=== PATIENT | female | born 1965 | race Caucasian/White ===

== ENCOUNTER → 2020-01-29 | Outpatient (CLI) | payer SELFPAY ==
[2020-01-29 15:04] VITALS: BMI 33.6
[2020-02-04 20:08] LABS: HPV APTIMA, High Risk Negative (Negative)
== END | disposition home or self-care (01) ==
LOC: LABSPEC 16:17
PROVIDERS: Referring Provider Obstetrics & Gynecology; Visit Provider Obstetrics & Gynecology
DX: Z12.4 Encounter for screening for malignant neoplasm of cervix (principal); R30.0 Dysuria
CPT/HCPCS: 87086; 87624; 88175; G0145

== ENCOUNTER → 2020-02-11 12:36 | Outpatient (CLI) | payer SELFPAY ==
[2020-01-29 15:04] VITALS: BMI 33.6
--- NOTE | 2020-02-11 12:40 | US_ITS ---
STUDY: ULTRASOUND OF THE FEMALE PELVIS - COMPLETE REASON FOR EXAM: Female, 54 years old. HX OF FIBROIDS -- PERIMENOPAUSAL -- HX OF CERVIX BIOPSY 1 YEAR AGO -- PAIN WITH INTERCOURSE LMP: Patient is perimenopausal. TECHNIQUE: Transvaginal TECHNICAL QUALITY: Adequate. COMPARISON: None. FINDINGS: The uterus is anteverted and is in a midline position. The uterus measures 7.8 cm x 8.3 cm x 5.9 cm. Normal uterine cervix. The endometrium is thickened and measures 10 mm in thickness, and is hyperechoic. There is no demonstrated endometrial mass. 3 fibroids are seen. The largest measures 4.5 cm x 4.7 cm x 3.7 cm. I.U.D. - The patient does not have an I.U.D. The right ovary is visualized. The right ovary measures 2.1 cm x 2.3 cm x 1.1 cm. There is no right ovarian cyst or ovarian mass. There is no visualized right adnexal mass or complex lesion. There is normal arterial and normal venous vascularity. The left ovary is visualized. The left ovary measures 2.4 cm x 2.7 cm x 1.3 cm. There is no left ovarian cyst or ovarian mass. There is no visualized left adnexal mass or complex lesion. There is normal arterial and normal venous vascularity. There is no fluid in the cul-de-sac. The pre void volume of the bladder was 170 ml. Polycystic ovary disease: No. US/Transvaginal Non- IMPRESSION: Fibroid uterus. Thickened endometrium. Electronically Signed: Henrry Horowitz, at 15:25 EST , Service support ,
== END ==
PROVIDERS: Referring Provider Obstetrics & Gynecology; Visit Provider Obstetrics & Gynecology
DX: D25.9 Leiomyoma of uterus, unspecified (principal)
CPT/HCPCS: 76830

== ENCOUNTER 2023-12-02 13:49 | Emergency (ER) | payer SELFPAY ==
[2023-12-02 13:49] VITALS: BP 131/91; PULSE 73; RESP 16; TEMP 36.6; O2SAT 98
[2023-12-02 14:19] VITALS: BMI 33.5
[2023-12-02 14:38] LABS: Color, Urine Yellow (Yellow); Glucose, Dipstick Normal (Normal); Leukocyte Esterase-Dipstick 25 /ul (Negative); Nitrite-Dipstick Negative (Negative); Occult Blood-Urine 250 /ul (Negative); Protein-Dipstick 30 mg/dl (Negative); Urine Bilirubin Dipstick Negative (Negative); Urine Clarity Sl. Cloudy (Clear); Urine Urobilinogen 1 mg/dl (Normal)
[2023-12-02 14:41] LABS: Ketone-Dipstick 150 mg/dl (Negative)
--- NOTE | 2023-12-02 14:43 | EDS_ITS ---
HPI History of Present Illness Chief Complaint: Flank Pain Informant: patient Onset/Context/Timing Onset: Hours (3-4) Context: Sudden Onset Timing: Continuous and Waxes and wanes Quality: Burning Location: Left flank Worsened by: Nothing Relieved by: Nothing Narrative Narrative: Patient presents with left flank pain that began today. Patient states it began rather suddenly. Patient states it began approximately 3 to 4 hours prior to arrival. Patient states that it has been constant but waxing and waning. Patient describes her pain as burning. Patient states nothing makes it better and nothing makes it worse. Patient states she is unable to find a position of comfort. Patient admits to some dysuria but has not noticed any hematuria. Patient admits to subjective fever at home. Patient states that the pain is causing her to be somewhat short of breath. [facility] Medical History Kidney disease Abdominal tumor Home Medications ?Medication ?Instructions ?Recorded ?Last Taken ?Type hydrocodone-acetaminophen 5-325mg 1 tab PO Q6H PRN PRN Pain 3 days 12/02/23 Unknown Rx 5mg-325mg #10 TABLETS Allergy/AdvReac Type Severity Reaction Status Date / Time red dye Allergy Mild other Verified 12/02/23 13:51 Family History (Updated 01/29/20 @ 15:10 by Mandi Hess) Mother COPD (chronic obstructive pulmonary disease) Social History Smoking Status: Former smoker alcohol intake: current details: social substance use type: marijuana caffeine: Yes what type of physical activity do you participate in: none duration: 30-45 minutes/day seatbelt use: always do you feel safe at home: Yes ROS ROS ED Constitutional Constitutional ED: Reports fever(s) and subjective; Denies chills Eyes Eyes: Denies blurry vision or change in vision ENT ENT ED: Denies rhinorrhea or sore throat Cardiovascular Cardiovascular: Denies chest pain or palpitations Respiratory/Chest Respiratory/Chest: Reports dyspnea; Denies cough Gastrointestinal Gastrointestinal: Reports abdominal pain, nausea and vomiting Genitourinary Genitourinary ED: Reports dysuria; Denies hematuria Musculoskeletal Musculoskeletal: Reports back pain; Denies neck pain Integumentary Denies abscess or rash Neurologic Neurologic: Reports weakness; Denies headache(s) Allergic/Immunologic Allergic/Immunologic ED: Denies mouth swelling or urticaria EXAM Physical Exam Const Vital Signs: 12/02/23 13:49 12/02/23 14:49 12/02/23 15:49 Temperature 98 F 97.9 F 98.4 F Temperature Source Temporal Oral Oral Pulse Rate 73 92 75 Respiratory Rate 16 18 16 Blood Pressure 131/91 H 154/96 H 127/65 H Blood Pressure Mean 104 115 85 Pulse Ox 98 92 99 Oxygen Delivery Method Room Air Room Air Room Air Positive well nourished and well developed General Appearance ED: well developed HEENT Reports moist mucous membranes Neck supple and no JVD Resp normal respiratory effort and clear to auscultation bilaterally Cardio regular rate and regular rhythm GI non-distended Palpation: soft and tender LLQ; Negative for guarding or rebound tenderness present Back/Spine General Back: CVA tenderness left Extremity normal to inspection Neuro oriented x3, CN's II-XII intact bilaterally and no sensory deficits noted Sensorium / Orientation: alert Motor Exam: strength 5/5 throughout MDM MDM MDM Narrative Medical decision making narrative: Differential diagnosis includes ureteral calculus, pyelonephritis, and urinary tract infection. CT scan of the abdomen pelvis will be obtained to assess for ureteral calculus and hydronephrosis. CBC will be obtained to assess for leukocytosis and anemia. Basic metabolic profile will be obtained to assess for electrolyte abnormality and renal function. Urinalysis will be obtained to assess for urinary tract infection and hematuria. Lab Data Attestation: I reviewed the patient's lab results. Lab results narrative: Urinalysis was reviewed. Leukocyte esterase was 25. Occult blood was 250. There were 150 ketones. There were 25-50 red blood cells. There is 0-5 white blood cells. There is 1+ bacteria. CBC was reviewed. There is a leukocytosis of 15.1. The remainder is within normal limits. Labs: Laboratory Results - last 24 hr 12/02/23 12/02/23 14:00 14:29 WBC 15.1 H RBC 4.60 Hgb 14.0 Hct 41.9 MCV 91.1 MCH 30.4 MCHC 33.4 RDW Std Deviation 40.7 RDW Coeff of Tori 12.2 Plt Count 400 MPV 9.8 Immature Gran % (Auto) 0.500 Neut % (Auto) 71.2 H Lymph % (Auto) 21.0 [place] % (Auto) 6.1 Eos % (Auto) 0.7 Baso % (Auto) 0.5 Absolute Neuts (auto) 10.7 H Absolute Lymphs (auto) 3.17 Nucleated RBC % 0 Sodium 135 L Potassium 3.5 Chloride 104 Carbon Dioxide 21.0 Anion Gap 10 BUN 16 Creatinine 1.00 Estim Creat Clear Calc 73.38 Est GFR (MDRD) Af Amer 73 Est GFR (MDRD) Non-Af 61 BUN/Creatinine Ratio 16.0 Glucose 154 H Calcium 10.0 Urine Color Yellow Urine Clarity Sl. Cloudy Urine pH 5.0 Ur Specific [place] 1.030 Urine Protein 30 H Urine Glucose (UA) Normal Urine Ketones 150 A* Urine Occult Blood 250 H Urine Nitrite Negative Urine Bilirubin Negative Urine Urobilinogen 1 H Ur Leukocyte Esterase 25 H Urine RBC 25-50 SEEN Urine WBC 0-5 SEEN Ur Squamous Epith Cells 0-5 SEEN Calcium Oxalate Crystal 1+ Urine Bacteria 1+ Urine Mucus 2+ Radiography Diagnostic Testing: Clinical Impression(s) from Imaging Studies Abdomen/Pelvis CT 12/02/23 14:43 IMPRESSION: 3.5 mm calculus at the left ureterovesical junction as it enters the urinary bladder causing a mild degree of left hydronephrosis and left hydroureter. Left perinephric stranding. Fenestration of the liver. Hepatic and splenic granulomas. Electronically Signed: Henrry Horowitz MD at 16:02 EDT , CT scan of the abdomen pelvis was obtained. There is a 3.5 mm calculus in the left ureterovesicular junction causing mild left hydronephrosis and hydroureter. There is left perinephric stranding. This was interpreted by the radiologist and was also independently reviewed by myself. Treatment and Re-Evaluation :: Patient was given IV fluids, morphine, and Zofran. Patient was feeling better on reevaluation. Patient states she feels the pain starting to come back. Patient was given a dose of Toradol. Patient was advised of her findings. Patient was instructed drink plenty of fluids. Patient was given a prescription for a short course of Gaastra. Patient was instructed to follow-up with her primary care physician in 5 to 7 days. Patient states she has also seen Dr. Torres in the past. Patient was instructed to follow-up with her in 5 to 7 days. Patient understood and was agreeable with the plan. All questions were answered. Discharge Plan Triage Chief Complaint: Flank Pain ED Provider: Andi Savage Dx/Rx/DC Orders Clinical Impression: Calculus of distal left ureter, Hematuria Instructions: ED Kidney Stone with Pain Prescriptions: New hydrocodone-acetaminophen 5-325 mg tablet 1 tab PO Q6H PRN PRN (Reason: Pain) 3 Days Qty: 10 0RF Primary Care Provider: Care Physician,No Primary Referrals: Consuelo Torres MD [Med Staff - Active Staff] - 3-5 Days Care Physician,No Primary [Primary Care Provider] - Print Language: [place] Disposition Disposition: Home, Self Care
--- NOTE | 2023-12-02 14:43 | CT_ITS ---
STUDY: CT ABDOMEN AND PELVIS WITHOUT CONTRAST REASON FOR EXAM: Female, 58 years old. Left flank pain RADIATION DOSAGE (If Supplied By Facility): CTDIvol = ( 19.63 ) mGy, DLP = ( 995.68 ) mGycm TECHNIQUE: Transaxial images were obtained from the dome of the diaphragm to the symphysis pubis without oral contrast, and without intravenous contrast. Sagittal and coronal images were reconstructed. Individualized dose optimization techniques were used for this CT. COMPARISON: None. FINDINGS: The visualized lung bases are unremarkable. The visualized portions of the heart are within normal limits. There is decreased attenuation of the liver consistent with steatosis. Scattered calcified hepatic granulomas. Normal gallbladder and extrahepatic biliary system. There are multiple benign calcified granulomata of the spleen. Normal pancreas. Normal bilateral adrenal glands. Normal right kidney. Mild degree of left hydronephrosis and left hydroureter due to a 3.5 mm calculus at the left ureterovesical junction. This is about to enter the urinary bladder. There is evidence of left perinephric and periureteric stranding. Normal visualized stomach. Normal small intestine. Normal colon. The appendix is visualized and appears normal. There is scattered atherosclerotic calcification of the abdominal aorta, without a demonstrated aneurysm. Normal inferior vena cava. Normal retroperitoneum. Normal urinary bladder. Calcified phleboliths are seen in the pelvis. Normal abdominal wall. Normal osseous structures. CT/Abdomen/Pelvis without Cont IMPRESSION: 3.5 mm calculus at the left ureterovesical junction as it enters the urinary bladder causing a mild degree of left hydronephrosis and left hydroureter. Left perinephric stranding. Fenestration of the liver. Hepatic and splenic granulomas. Electronically Signed: Henrry Horowitz MD at 16:02 EDT ,
[2023-12-02 14:45] LABS: Calcium Oxalate Crystals Ur 1+ /hpf (<or=2+); Mucous, Urine 2+ /hpf (<or=2+); Red Blood Cells-Urine 25-50 SEEN /hpf (0-5)
[2023-12-02 14:46] LABS: Bacteria 1+ /hpf (None Seen); Squamous Epithelial Cells - UA 0-5 SEEN /hpf (5-10); White Blood Cells 0-5 SEEN /hpf (0-5)
[2023-12-02 14:49] VITALS: BP 154/96; PULSE 92; RESP 18; TEMP 36.6; O2SAT 92
[2023-12-02] MEDS: Ondansetron 4 MG/2 ML Vial IV (14:50)
[2023-12-02] MEDS: Morphine 4 MG/ML Syringe IV (14:50)
[2023-12-02] MEDS: 0.9% Normal Saline (1000mL) 1,000 ML 1000 ML IV (14:50)
[2023-12-02 14:51] LABS: Absolute Lymphocyte Count 3.17 X10^3/uL (0.83-4.51); Absolute Neutrophil Count 10.7 X10^3/uL (2.0-7.7); Basophil# 0.08 X10^3/uL; Basophil% 0.5 % (0-1); Eosinophils% 0.7 % (0-5); Hematocrit 41.9 % (37-47); Lymphocyte # 3.17 X10^3/ul (0.83-4.51); Mean Corp Hgb Conc 33.4 g/dL (32-36); Mean Corpuscular Hgb 30.4 pg (27.0-32.0); Mean Corpuscular Volume 91.1 fL (81-99); Mean Platelet Vol. 9.8 fl (6.2-12.0); Monocyte# 0.92 X10^3/uL; Monocyte% 6.1 % (0-10); NRBC Flagged by Analyzer 0 % (0-5); Neutrophil # 10.73 X10^3/uL (2.7-7.7); Neutrophil % 71.2 % (47-70); Platelet Count 400 K/mm3 (150-450); RBC Distribution Width CV 12.2 % (11.6-14.6); RBC Distribution Width SD 40.7 fl (35.1-43.9); White Blood Count 15.1 K/mm3 (4.4-11.0)
[2023-12-02 15:03] LABS: Anion Gap 10 (5-15); BUN 16 mg/dL (7-18); Chloride 104 mmol/L (98-107); EST Glomerular Filtration Rate 61 mL/min (>60); Est Glom Filt Rate - Afr Amer 73 mL/min (>60); Estimated Creatinine Clearance 73.38 ml/min; Glucose 154 mg/dL (74-106); Potassium 3.5 mmol/L (3.5-5.1); Sodium Level 135 mmol/L (136-145)
[2023-12-02 15:49] VITALS: BP 127/65; PULSE 75; RESP 16; TEMP 36.9; O2SAT 99
[2023-12-02] MEDS: Ketorolac 30 MG/ML Syringe IV (16:50)
[2023-12-02 16:51] VITALS: BP 125/66; PULSE 69; RESP 16; TEMP 36.8; O2SAT 100
[2023-12-02 17:00] VITALS: BP 129/75; PULSE 65; RESP 18; O2SAT 99
== END 2023-12-02 17:14 | disposition home or self-care (01) ==
PROVIDERS: Emergency Provider Emergency Medicine; Visit Provider Emergency Medicine
DX: N13.2 Hydronephrosis with renal and ureteral calculous obstruction (principal); Z87.891 Personal history of nicotine dependence
CPT/HCPCS: 74176; 80048; 81001; 85025; 96361; 96374; 96375; 99283; J7030; A4216; J2405